=== PATIENT | male | born 1955 | race Caucasian/White ===

== ENCOUNTER 2021-07-04 19:08 | Emergency (ER) | payer OTHER, BC ==
[~2021-07-04 19:08] MED LIST: Iopamidol 370 76% 100 ML VIAL ONE
[2021-07-04] MEDS ORDERED: Ketorolac Tromethamine 30 MG/ML VIAL ONE (20:56)
== END 2021-07-04 21:53 | disposition home or self-care (01) ==
LOC: ERS 19:08
DX: S16.1XXA Strain of muscle, fascia and tendon at neck level, initial encounter (principal); V69.40XA Driver of heavy transport vehicle injured in collision with unspecified motor vehicles in traffic accident, initial encounter; I10 Essential (primary) hypertension
CPT/HCPCS: 70450; 71260; 72125; 74177; 96365; J1885; Q9967